=== PATIENT | female | born 1985 | race Caucasian/White ===

== ENCOUNTER 2017-10-02 22:26 | Emergency (ER) | payer OTHER ==
[~2017-10-02] VITALS: Ht 172.7 cm; Wt 70.3 kg
[2017-10-02] MEDS ORDERED: NKM (23:07)
[2017-10-02] MEDS ORDERED: IBUPROFEN600 MG ORAL (23:37)
[2017-10-02] MEDS ORDERED: KEFLEX500 MG ORAL (23:37)
--- NOTE | 2017-10-02 23:37 | Emergency Room Report ---
History of Present Illness General Chief Complaint: Upper Extremity Injury Source: Patient Present Illness HPI Is a 32-year-old female who is a [employer]. She is right-handed. She presents with chief complaint of right index finger injury. She accidentally closed car door on her finger. This occurred just prior to arrival. No other injury. Pain is throbbing 3/10. No nausea no vomiting. Worse with palpation to Allergies: Coded Allergies: No Known Allergies (Unverified , 10/02/17) Patient History Past Medical History: see triage record, old chart reviewed Past Surgical History: none Pertinent Family History: none Social History: Denies: smoking Last Menstrual Period: 3 weeks ago Now: No Immunizations: UTD Reviewed Nursing Documentation: PMH: Agreed, PSxH: Agreed Nursing Documentation-PMH Past Medical History: No Stated History Review of Systems Eye: Denies: eye pain, blurred vision ENT: Denies: ear pain, nose congestion, throat swelling Respiratory: Denies: cough, shortness of breath Cardiovascular: Denies: chest pain, palpitations Gastrointestinal: Denies: abdominal pain, diarrhea, nausea, vomiting Musculoskeletal: Reports: joint pain, Denies: back pain Skin: Denies: rash Neurological: Denies: headache, numbness Endocrine: Denies: increased thirst, increased urine Hematologic/Lymphatic: Denies: easy bruising All Other Systems: negative except mentioned in HPI Physical Exam Vital Signs Date Time Temp Pulse Resp B/P (MAP) Pulse Ox O2 Delivery O2 Flow Rate FiO2 10/02/17 23:08 98.1 76 18 117/77 99 Room Air vitals normal Sp02 EP Interpretation: reviewed, normal General Appearance: well appearing, no apparent distress, alert Head: normocephalic, atraumatic Eyes: bilateral eye PERRL, bilateral eye EOMI ENT: hearing grossly normal, normal pharynx Neck: full range of motion, supple, no meningismus Respiratory: chest non-tender, lungs clear, normal breath sounds Cardiovascular #1: regular rate, rhythm, no murmur Gastrointestinal: normal bowel sounds, non tender, no mass, no organomegaly, no bruit, non-distended Musculoskeletal: back normal, gait/station normal, normal range of motion, other - Right index finger: She has abrasion to the tip. There is a 25% subungual hematoma Neurologic: alert, oriented x3 Psychiatric: mood/affect normal Skin: warm/dry Procedures Splinting Splinting : Consent: Verbal Location: Right index Pre-Made Type: metal Pre-Proc Neuro Vasc Exam: normal Post-Proc Neuro Vasc Exam: normal Patient Tolerated: Well Complications: None Additional Procedure Procedure Narrative Procedure: Trephination Indication: Subungual hematoma Description: Using an electric cautery, I trephinate the finger nail. Patient tolerated procedure without a problem. Medical Decision Making Diagnostic Impression: Primary Impression: Closed fracture of tuft of distal phalanx of finger Additional Impression: Subungual hematoma of finger Qualified Codes: S60.10XA - Contusion of unspecified finger with damage to nail, initial encounter ER Course Patient with a tuft fracture and subungual hematoma. Most likely had underlying nailbed laceration. Bleeding is well-controlled. We'll splint and discharge home. Other X-Ray Diagnostic Results Other X-Ray Diagnostic Results : X-Ray ordered: X-ray right finger # of Views/Limited Vs Complete: 3 View Indication: Pain EP Interpretation: Yes Interpretation: no dislocation, no soft tissue swelling, other - Tuft fracture Impression: Other - Toe fracture of right index finger Electronically Signed by: Mark Perez MD Last Vital Signs Date Time Temp Pulse Resp B/P (MAP) Pulse Ox O2 Delivery O2 Flow Rate FiO2 10/02/17 23:08 98.1 76 18 117/77 99 Room Air Status: improved Disposition: HOME, SELF-CARE Condition: Stable Scripts Ibuprofen* (MOTRIN*) 600 Mg Tablet 600 MG ORAL THREE TIMES A DAY, #30 TAB 0 Refills Prov: MARK PEREZ M.D. 10/02/17 Cephalexin* (KEFLEX*) 500 Mg Capsule 500 MG ORAL TID, #21 CAP 0 Refills Prov: MARK PEREZ M.D. 10/02/17 Referrals: [facility] (PCP) Additional Instructions: Followup with your DrAnkush in 7 days for recheck. Return if worse. MARK PEREZ M.D. Oct 02, 2017 23:37
[2017-10-02 23:55] VITALS: BP_SYST 117; BP_SYST 126; BP_DIAS 77; BP_DIAS 83
--- NOTE | 2017-10-03 11:16 | Diagnostic Imaging Report ---
Indication: Second digit trauma, pain Technique: 3 views of the right index finger Comparison: none Findings: There is a minimally displaced and minimally distracted terminal tuft fracture of the second distal phalanx. No other fractures. No radiopaque foreign body. Impression: Positive for terminal tuft fracture Electronic medical record indicates that this was recognized by the ED physician
== END 2017-10-02 23:56 | disposition home or self-care (01) ==
LOC: EMR 22:55
DX: S62.630A Displaced fracture of distal phalanx of right index finger, initial encounter for closed fracture (principal); S60.121A Contusion of right index finger with damage to nail, initial encounter; W23.0XXA Caught, crushed, jammed, or pinched between moving objects, initial encounter; Y92.810 Car as the place of occurrence of the external cause; Y99.0 Civilian activity done for income or pay
CPT/HCPCS: 29130; 99284